=== PATIENT | male | born 1975 | race American Indian/Alaskan Native ===

== ENCOUNTER 2017-08-14 18:27 | Emergency (ER) | payer SELFPAY ==
--- NOTE | 2017-08-14 18:41 | Emergency Department Report ---
Chief Complaint: Neuro Symptoms/Deficit Stated Complaint: FACE NUMBNESS Time Seen by Provider: 08/14/17 18:40 - HPI History of Present Illness: Patient here reports that he woke up last week and he felt like the side effects face was numb on the right. He said he noticed that the right side of his face was not straight, he said he was having difficulty closing his right eye. He denies any headache. He said he has a family history of high blood pressure but he does have blood pressure and his family. He denies any dizziness. Denies any shortness of breath or chest pain. Denies any history of stroke. He denies any medical problems. Denies any difficulty walking he said the problem is only in his face. He denies any change in his vision but said that he has difficulty closing his right eye. - ROS Review of Systems: All systems are negative unless stated in HPI above - Exam Vital Signs: Vital Signs 08/14/17 18:37 Temperature 98.3 F Pulse Rate 87 Respiratory 18 Rate Blood Pressure 157/85 O2 Sat by Pulse 100 Oximetry Physical Exam: This is a 42-year-old male well-nourished well-developed in no acute distress. Mini neurological exam: Right facial drooping, paralysis to right face. Patient unable to wrinkle right side of his forehead. Difficulty closing her right eye. Normal facial sensation. Normal gait. He is alert and oriented 3. GCS is 15. MSE screening note: Focused history and physical exam performed. Due to findings the following was ordered: ED Medical Decision Making - Medical Decision Making MDM: Patient screened by provider in triage area. Appropriate protocol initiated and patient to be seen in main ED by ED Disposition for MSE Condition: Stable
--- NOTE | 2017-08-14 20:00 | Cat Scan Report ---
FINAL REPORT PROCEDURE: CT HEAD/BRAIN WO CON TECHNIQUE: Computerized tomography of the head was performed without contrast material. HISTORY: neuro deficits < 6hrs or sx present upon awakening COMPARISON: No prior studies are available for comparison. FINDINGS: Mild changes of chronic sinusitis are seen. Mastoid air cells appear clear. No calvarial fracture is seen. Cerebral ventricles are normal in size. No acute intracranial hemorrhage or mass effect is seen. No CVA is seen. IMPRESSION: No intracranial abnormality is seen.
[2017-08-14 20:17] LABS: Basophils % (Auto) 0.4 % (0.0-1.8); Eosinophils % (Auto) 2.1 % (0.0-4.3); Hematocrit 41.3 % (35.5-45.6); Hemoglobin 12.8 gm/dl (11.8-15.2); Mean Corpuscular HGB Conc 31 % (32-34); Mean Corpuscular Volume 74 fl (84-94); Platelet Count 252 K/mm3 (140-440); Red Blood Count 5.62 M/mm3 (3.65-5.03); Red Cell Distribution Width 15.5 % (13.2-15.2); White Blood Count 7.6 K/mm3 (4.5-11.0)
[2017-08-14 20:28] LABS: Mean Corpuscular Hemoglobin 23 pg (28-32)
[2017-08-14 20:30] LABS: Anion Gap 16 mmol/L; BUN/Creatinine Ratio 16; Blood Urea Nitrogen 18 mg/dL (9-20); Calcium 9.3 mg/dL (8.4-10.2); Carbon Dioxide 28 mmol/L (22-30); Chloride 103.1 mmol/L (98-107); Glucose 88 mg/dL (75-100); INR 0.96 (0.87-1.13); Potassium 4.3 mmol/L (3.6-5.0); Sodium 143 mmol/L (137-145)
[2017-08-15] MEDS ORDERED: DELTASONE PO ONE (02:52)
[2017-08-15] MEDS ORDERED: VALTREX PO ONE (02:52)
--- NOTE | 2017-08-15 03:07 | Emergency Department Report ---
HPI - General Chief Complaint: Neuro Symptoms/Deficit Time Seen by Provider: 08/14/17 18:40 - HPI HPI: This is a 42 year-old male presents to the emergency department with complaint of a one-week history of some left-sided facial numbness and some facial asymmetry. First he just felt like there was some decreased sensation as if he had slept on his face. However he started to notice that he had trouble moving his eye and eyebrow and eyelid and that his smile was crooked. Occasionally he feels as if there was some slurred speech but he says that this improves throughout the day and he denies any confusion or problems getting his thoughts out. He denies any numbness or any other deficits to the extremities or torso. He does not have any past medical history. He has not taken anything for his symptoms prior to presentation. No recent travel or sick contacts at home. He does not have a primary care physician. ED Past Medical Hx - Past Medical History Previous Medical History?: No - Surgical History Past Surgical History?: No - Social History Smoking Status: Never Smoker Substance Use Type: None - Medications Home Medications: Home Medications Medication Instructions Recorded Confirmed Last Taken Type Valacyclovir HCl [Valtrex] 1,000 mg PO TID #21 tablet 08/15/17 Unknown Rx predniSONE [Deltasone] 20 mg PO BID #14 tablet 08/15/17 Unknown Rx ED Review of Systems ROS: Stated complaint: FACE NUMBNESS Other details as noted in HPI Comment: All other systems reviewed and negative Constitutional: denies: chills, fever Eyes: denies: eye pain, eye discharge, vision change ENT: denies: ear pain, throat pain Respiratory: denies: cough, shortness of breath, wheezing Cardiovascular: denies: chest pain, palpitations Gastrointestinal: denies: abdominal pain, nausea, diarrhea Genitourinary: denies: urgency, dysuria Musculoskeletal: denies: back pain, joint swelling, arthralgia Skin: denies: rash, lesions Neurological: weakness (left upper facial weakness), numbness. denies: headache Physical Exam - Physical Exam Vital Signs: Vital Signs 08/14/17 08/15/17 08/15/17 18:37 01:23 01:28 Temperature 98.3 F Pulse Rate 87 88 Respiratory 18 11 L 18 Rate Blood Pressure 157/85 O2 Sat by Pulse 100 97 98 Oximetry 08/15/17 08/15/17 08/15/17 01:30 01:45 02:00 Temperature Pulse Rate 91 H 70 Respiratory 10 L 10 L Rate Blood Pressure 148/99 148/92 142/87 O2 Sat by Pulse 97 96 99 Oximetry 08/15/17 08/15/17 02:15 02:30 Temperature Pulse Rate 75 80 Respiratory 12 18 Rate Blood Pressure 129/86 129/86 O2 Sat by Pulse 99 98 Oximetry Physical Exam: GENERAL: The patient is well-developed well-nourished. HENT: Normocephalic. Atraumatic. Patient has moist mucous membranes. EYES: Extraocular motions are intact. Pupils equal reactive to light bilaterally. No nystagmus. He is unable to lift his left eyebrow and is unable to fully close the left eyelid. 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 No drooling or trismus. NECK: Supple. Trachea is midline. CHEST/LUNGS: Clear to auscultation. There is no respiratory distress noted. HEART/CARDIOVASCULAR: Regular. There is no tachycardia. There is no gallop rub or murmur. ABDOMEN: Abdomen is soft, nontender. Patient has normal bowel sounds. There is no abdominal distention. SKIN: There is no rash. There is no edema. There is no diaphoresis. NEURO: The patient is awake, alert, and oriented. The patient is cooperative. There is some numbness to the left cheek and left forehead. He is unable to lift his left eyebrow and is unable to fully close the left eyelid. 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 The patient has normal speech. MUSCULOSKELETAL: There is no tenderness or deformity. There is no limitation range of motion to extremities. There is no evidence of acute injury. ED Course Vital Signs 08/14/17 08/15/17 08/15/17 18:37 01:23 01:28 Temperature 98.3 F Pulse Rate 87 88 Respiratory 18 11 L 18 Rate Blood Pressure 157/85 O2 Sat by Pulse 100 97 98 Oximetry 08/15/17 08/15/17 08/15/17 01:30 01:45 02:00 Temperature Pulse Rate 91 H 70 Respiratory 10 L 10 L Rate Blood Pressure 148/99 148/92 142/87 O2 Sat by Pulse 97 96 99 Oximetry 08/15/17 08/15/17 02:15 02:30 Temperature Pulse Rate 75 80 Respiratory 12 18 Rate Blood Pressure 129/86 129/86 O2 Sat by Pulse 99 98 Oximetry ED Medical Decision Making - Lab Data Result diagrams: 08/14/17 19:43 08/14/17 19:43 - Radiology Data Radiology results: report reviewed PROCEDURE: CT HEAD/BRAIN WO CON TECHNIQUE: Computerized tomography of the head was performed without contrast material. HISTORY: neuro deficits lt; 6hrs or sx present upon awakening COMPARISON: No prior studies are available for comparison. FINDINGS: Mild changes of chronic sinusitis are seen. Mastoid air cells appear clear. No calvarial fracture is seen. Cerebral ventricles are normal in size. No acute intracranial hemorrhage or mass effect is seen. No CVA is seen. IMPRESSION: No intracranial abnormality is seen. Transcribed By: WW Dictated By: KIMMIE LLANES JR, MD Electronically Authenticated By: KIMMIE LLANES JR, MD Signed Date/Time: 08/14/17 7029 - Medical Decision Making The patient had a workup through triage for possible CVA and therefore had a CT of the head that did not show any bleed, shift or mass or any acute process. Labs have been unremarkable. Vital signs stable throughout his ED course. On physical examination, the patient has left-sided forehead and nasal labial fold paralysis. He is unable to move the eyebrow and fully close the left eye. This appears most consistent with Calle's palsy. He was given a dose of steroids and Valtrex here and will go home on a 1 week course of this. He'll be given referrals for primary care and neurology. He'll be given discharge instructions and information about Calle's palsy. He will return to the emergency Department with any worsening of symptoms or any acute distress. - Differential Diagnosis CVA, TIA, Calle's palsy Critical Care Time: No Critical care attestation.: If time is entered above; I have spent that time in minutes in the direct care of this critically ill patient, excluding procedure time. ED Disposition Clinical Impression: Calle's palsy Disposition: DC-01 TO HOME OR SELFCARE Is pt being admited?: No Condition: Stable Instructions: Calle Palsy (ED) Additional Instructions: Please follow up with a primary care physician in the next few days. I have given you a referral for a local neurologist, Dr. Crenshaw. Return to the emergency Department with any worsening of your symptoms or any acute distress. Prescriptions: predniSONE [Deltasone] 20 mg PO BID #14 tablet Valacyclovir HCl [Valtrex] 1,000 mg PO TID #21 tablet Referrals: PRIMARY CAREMD [Primary Care Provider] - 3-5 Days RADHA PLUMMER MD [Staff Physician] - 3-5 Days JAYMIE CRENSHAW MD [Staff Physician] - 3-5 Days Time of Disposition: 03:18
[2017-08-15 03:42] VITALS: BP 138/77
== END 2017-08-15 03:41 | disposition home or self-care (01) ==
LOC: ED 18:27
DX: G51.0 Bell's palsy (principal)
CPT/HCPCS: 36415; 70450; 80048; 84484; 85025; 85610; 85670; 85730; 93005; 93010; 99285; J7512